=== PATIENT | male | born 1985 ===

== ENCOUNTER 2016-06-25 20:46 | Emergency (ER) | payer MEDICAID ==
[2016-06-25 20:46] VITALS: BMI 22.6
[2016-06-25 21:00] VITALS: BP 106/63; PULSE 84; TEMP 98.4; O2SAT 98
--- NOTE | 2016-06-25 21:19 | C.PDOC ---
History Of Present Illness Patient is a 30 year old male who presents to the ER for a wound dressing change. Patient had knee surgery done on Tuesday the and is scheduled for a follow up next week for staple removal, however, complains of itchiness to the surgical site. Patient states his pain is controlled by the pain medication given to him. Denies active bleeding, fever, pain, or trauma. Time Seen by Provider: 06/25/16 21:03 Chief Complaint (Nursing): Wound Check History Per: Patient History/Exam Limitations: no limitations Onset/Duration Of Symptoms: Hrs, Other (Surgical site) Current Symptoms Are (Timing): Still Present Location Of Injury: Anterior: Knee Quality Of Symptoms: Itching Recent travel outside of the [place]: No Past Medical History Reviewed: Historical Data, Nursing Documentation, Vital Signs Vital Signs: Last Vital Signs Temp 98.4 F 06/25/16 20:55 Pulse 84 06/25/16 20:55 Resp 20 06/25/16 21:32 BP 106/63 06/25/16 20:55 Pulse Ox 98 06/25/16 21:18 - Medical History PMH: Asthma, Depression (seeing counselor in [facility] [place]), Fractures (knee sx 2009 and 2008), Post Traumatic Stress Disorder Other Surgeries: Knee surgery Family History: States: Unknown Family Hx - Social History Hx Tobacco Use: Yes (light smoker) Hx Alcohol Use: No Hx Substance Use: No (denies) - Immunization History Hx Tetanus Toxoid Vaccination: No Hx Influenza Vaccination: No Hx Pneumococcal Vaccination: No Review Of Systems Constitutional: Negative for: Fever, Other (Active bleeding) Musculoskeletal: Positive for: Other (Knee surgical site itchiness) Physical Exam - Physical Exam Appears: Well, Non-toxic Skin: Normal Color, Warm, Dry Head: Atraumatic, Normacephalic Oral Mucosa: Moist Chest: Symmetrical, No Tenderness Cardiovascular: Rhythm Regular, No Murmur Respiratory: Normal Breath Sounds, No Rales, No Rhonchi, No Wheezing Gastrointestinal/Abdominal: Soft, No Tenderness Extremity: Other (Upon removal of BOBO wrap and knee immobilizer, 30 yulissa found dry and intact, no significant swelling, erythema, or discharge.) Neurological/Psych: Oriented x3, Normal Speech, Other (No focal deficits) ED Course And Treatment O2 Sat by Pulse Oximetry: 98 (Room air) Pulse Ox Interpretation: Normal Medical Decision Making Medical Decision Making: New sterile dressing applied by me. Bobo bandage and knee immobilizer re- applied. Patient instructed to follow up with surgeon. Disposition Counseled Patient/Family Regarding: Need For Followup - Disposition Referrals: Non [facility] Provider, [Primary Care Provider] - Disposition: HOME/ ROUTINE Disposition Time: 21:17 Condition: STABLE Additional Instructions: Please follow up with your surgeon as scheduled one week after surgery for staple removal Instructions: Acute Wound Care (ED) - POA Present On Arrival: None - Clinical Impression Clinical Impression: Dressing change or removal, surgical wound - Scribe Statement The provider has reviewed the documentation as recorded by the Scribe Ciaran Green All medical record entries made by the Benjieibzina were at my direction and personally dictated by me. I have reviewed the chart and agree that the record accurately reflects my personal performance of the history, physical exam, medical decision making, and the department course for this patient. I have also personally directed, reviewed, and agree with the discharge instructions and disposition.
[2016-06-25 21:33] VITALS: RESP 20
== END 2016-06-25 21:32 | disposition home or self-care (01) ==
LOC: SUPCPDRO 20:46 → C.ER 20:46
DX: Z48.01 Encounter for change or removal of surgical wound dressing (principal)

== ENCOUNTER 2017-02-27 10:56 | Observation (INO) | payer MEDICAID, OTHER ==
[2017-02-27 10:56] VITALS: BMI 22.6
--- NOTE | 2017-02-27 11:11 | C.PDOC ---
History Of Present Illness 31 y/o undomiciled male with unknown pmh presents with swelling and pain to right elbow with area of erythema and warmth to right forearm. pt sts symptoms x 2 days. pt is poor historian, unclear if there was any trauma or injury, denies any new tattoos. Time Seen by Provider: 02/27/17 11:02 Chief Complaint (Nursing): Upper Extremity Problem/Injury History Per: Patient History/Exam Limitations: other (poor hostoiran) Onset/Duration Of Symptoms: Days (2) Current Symptoms Are (Timing): Worse Quality: Tightness, "Pain" Severity: Moderate Exacerbating Factor(s): Movement Past Medical History Reviewed: Historical Data, Nursing Documentation, Vital Signs Vital Signs: Last Vital Signs Temp 98.3 F 02/27/17 10:59 Pulse 67 02/27/17 10:59 Resp 16 02/27/17 10:59 BP 101/62 02/27/17 10:59 Pulse Ox 96 02/27/17 14:05 - Medical History PMH: Asthma, Depression (seeing counselor in [facility] [place]), Fractures (knee sx 2009 and 2008), Post Traumatic Stress Disorder Denies: Bronchitis, COPD, Emphysema, Pneumonia, Pneumothorax, Pulmonary Embolism, Chronic Kidney Disease, Sleep Apnea Family History: States: Unknown Family Hx - Social History Hx Tobacco Use: Yes (light smoker) Hx Alcohol Use: No Hx Substance Use: No (denies) - Immunization History Hx Tetanus Toxoid Vaccination: No Hx Influenza Vaccination: No Hx Pneumococcal Vaccination: No Review Of Systems Constitutional: Negative for: Fever, Chills Skin: Positive for: Other (erythema to right forearm) Neurological: Negative for: Weakness, Numbness Physical Exam - Physical Exam Appears: No Acute Distress, Unkempt, Other (uncomfortable) Skin: Warm, Dry, Other (area of erythema, warmth and tenderness 16 cm x 6 cm to right lateral forearm) Cardiovascular: Rhythm Regular, No Murmur Respiratory: No Decreased Breath Sounds, No Wheezing Gastrointestinal/Abdominal: Soft, No Tenderness Extremity: Tenderness (right elbow and forearm), Capillary Refill (less than 2 sec), Other (right elbow markedly swollen and tender, able to fully extend and flex at elbow,. no erythema or warmth to elbow, from at right shoulder and wrist. ) Pulses: Left Radial: Normal, Right Radial: Normal Neurological/Psych: Oriented x3, Normal Speech, Normal Cognition ED Course And Treatment - Laboratory Results Result Diagrams: 02/27/17 11:43 02/27/17 11:43 O2 Sat by Pulse Oximetry: 96 Medical Decision Making Medical Decision Makin31 y/o male with swelling and pain to right elbow and area of cellulitis to right forearm x 2 days; plan- labs, bc, xrays elbow and forearm, antibiotics, likely admission. pt able to fully extend right arm, septic arthritis not suspected. 1230 pm pt with elevated wbc and area of cellulits , no fx noted on xrays (by me); will admit to iv antibiotics. discussed with Dr Good, to her service. Disposition Discussed With .: Ame Good Doctor Will See Patient In The: Hospital - Disposition Disposition: HOSPITALIZED Disposition Time: 12:40 Condition: STABLE - Clinical Impression Clinical Impression: Cellulitis of right forearm, Effusion of elbow joint, right
[2017-02-27 11:50] LABS: BASO # 0.1 K/uL (0.0-0.2); BASO % 0.4 % (0.0-2.0); EOS # 0.2 K/uL (0.0-0.7); EOS % 1.4 % (0.0-4.0); HEMOGLOBIN 13.2 g/dL (12.0-18.0); LYMPH # 1.1 K/uL (1.0-4.3); LYMPH % 8.4 % (20.0-40.0); MEAN CORPUSCULAR HEMOGLOBIN 30.4 pg (27.0-31.0); MONO # 0.9 K/uL (0.0-0.8); MONO % 6.7 % (0.0-10.0); NEUT # 11.3 K/uL (1.8-7.0); NEUT % 83.1 % (50.0-75.0); PLATELET COUNT 325 K/uL (130-400); RBC 4.34 Mil/uL (4.40-5.90); WHITE BLOOD COUNT 13.6 K/uL (4.8-10.8)
[2017-02-27 11:58] LABS: URINE BACTERIA RARE (<OCC); URINE BILIRUBIN NEGATIVE (NEGATIVE); URINE BLOOD 1+ (NEGATIVE); URINE CLARITY Clear (Clear); URINE COLOR Yellow (YELLOW); URINE GLUCOSE (UA) NORMAL (Normal); URINE LEUKOCYTE ESTERASE NEG Leu/uL (Negative); URINE NITRATE NEGATIVE (NEGATIVE); URINE PROTEIN 1+ mg/dL (NEGATIVE)
[2017-02-27] MEDS ORDERED: cefTRIAXone IV 1 gm in Dextros 50 ML IVPB STA (12:05)
[2017-02-27] MEDS ORDERED: Vancomycin 1 GM 1 GM/250 ML BAG IVPB STA (12:05)
[2017-02-27 12:06] LABS: ALB/GLOB RATIO 1.4 (1.0-2.1); ALBUMIN 4.4 g/dL (3.5-5.0); ALT/SGPT 32 U/L (21-72); AST/SGOT 50 U/L (17-59); BLOOD UREA NITROGEN 15 mg/dL (9-20); CALCIUM 8.8 mg/dl (8.6-10.4); GFR AFRICAN-AMERICAN > 60; GFR NON-AFRICAN AMERICAN > 60
[2017-02-27] MEDS ORDERED: cefTRIAXone IV 1 gm in Dextros 50 ML IVPB ONE (12:13)
[2017-02-27] MEDS ORDERED: Vancomycin 1 gm/NS 200 ml 1 GM/200 ML BAG IVPB STA (12:17)
[2017-02-27 12:27] LABS: BARBITURATES, UR NEGATIVE (NEGATIVE); BENZODIAZEPINES, UR NEGATIVE (NEGATIVE); OPIATES, UR NEGATIVE (NEGATIVE)
[2017-02-27 12:39] LABS: BANDS 4 % (0-2); MONOCYTE 6 % (0-10); NEUTROPHIL 79 % (50-75); TOTAL CELLS COUNTED 100
[2017-02-27 12:41] LABS: LYMPHOCYTE 9 % (20-40); PLATELET ESTIMATE NORMAL (NORMAL); REACTIVE LYMPHOCYTES 2 % (0-0)
[2017-02-27 13:14] LABS: PHENCYCLIDINE, UR POSITIVE (NEGATIVE)
--- NOTE | 2017-02-27 13:34 | RAD ---
PROCEDURE: Radiographs of the Right Forearm HISTORY: swelling, pain and warmth to forearm COMPARISON: None available. TECHNIQUE: Frontal and lateral views obtained. FINDINGS: BONES: No fracture or destructive lesion. JOINT SPACES: Unremarkable. OTHER FINDINGS: None. IMPRESSION: Unremarkable radiographs of the right forearm.
--- NOTE | 2017-02-27 13:34 | RAD ---
PROCEDURE: Radiographs of the right elbow. HISTORY: swelling and pain to elbow COMPARISON: No prior. FINDINGS: BONES: Normal. No fracture. JOINTS: Normal. No osteoarthritis. SOFT TISSUES: Normal. JOINT EFFUSION: None. OTHER FINDINGS: None. IMPRESSION: Unremarkable radiographs of the right elbow.
[2017-02-27] MEDS ORDERED: Multivitamin (MVI) 10 ML, Thiamine 100 MG, Folic Acid 1 MG in Sodium Chloride 0.9% 1,00... IV ONE (13:35)
--- NOTE | 2017-02-27 13:36 | CP.PCM.HP ---
History of Present Illness - History of Present Illness History of Present Illness: CC: "Right arm pain" HPI: 31 year old male with past medical history of asthma presents to the ED due to right arm pain that started about 2 days ago. 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 At the time he thought it was just bruised. Today the pain became unbearable and he decided to come to the hospital. He states he does not know when the redness began on his arm. He states the pain is an 8/10 constant. He has not tried anything for the pain. He states the pain feels like numbness. He also states the pain is made worse when he moves his arm. He denies fevers, chills, nausea, vomiting, diarrhea or constipation. PMD: None Past Medical History: Asthma (has not used any asthmatic medication in many years), PTSD diagnosed at the age of 9. 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 Smokes about one pack per week for the past 14 years. Present on Admission - Present on Admission Any Indicators Present on Admission: No Review of Systems - Constitutional Constitutional: absent: Chills, Fever - Cardiovascular Cardiovascular: absent: Chest Pain, Dyspnea, Palpitations - Respiratory Respiratory: absent: Dyspnea - Gastrointestinal Gastrointestinal: absent: Constipation, Diarrhea, Nausea, Vomiting - Genitourinary Genitourinary: absent: Dysuria - Musculoskeletal Musculoskeletal: Joint Swelling (Right forearm and right elbow ), Numbness, Tingling - Psychiatric Psychiatric: Anxiety, Depression, Paranoia. absent: Auditory Hallucinations, Hallucinations, Homicidal Ideation, Suicidal Ideation, Visual Hallucinations, Tactile Hallucinations Past Patient History - Infectious Disease Hx of Infectious Diseases: None - Past Social History Smoking Status: Light Smoker < 10 Cigarettes Daily - PULMONARY Hx Asthma: Yes Hx Bronchitis: No Hx Chronic Obstructive Pulmonary Disease (COPD): No Hx Emphysema: No Hx Pneumonia: No Hx Pulmonary Embolism: No Hx Sleep Apnea: No - NEUROLOGICAL Hx Neurological Disorder: No - HEENT Hx HEENT Problems: No - RENAL Hx Chronic Kidney Disease: No - ENDOCRINE/METABOLIC Hx Endocrine Disorders: No - HEMATOLOGICAL/ONCOLOGICAL Hx Blood Disorders: No - INTEGUMENTARY Hx Dermatological Problems: No - MUSCULOSKELETAL/RHEUMATOLOGICAL Hx Fractures: Yes (knee sx 2009 and 2008) - GASTROINTESTINAL Hx Gastrointestinal Disorders: No - GENITOURINARY/GYNECOLOGICAL Hx Genitourinary Disorders: No - PSYCHIATRIC Hx Depression: Yes (seeing counselor in [facility]) Hx Post Traumatic Stress Disorder: Yes Hx Substance Use: No (denies) - SURGICAL HISTORY Hx Surgeries: No Other/Comment: "L knee sx 06/23 to remove screws" - ANESTHESIA Hx Anesthesia: Yes Hx Anesthesia Reactions: No Hx Malignant Hyperthermia: No Meds Allergies/Adverse Reactions: Allergies Allergy/AdvReac Type Severity Reaction Status Date / Time No Known Allergies Allergy Verified 02/27/17 11:00 Physical Exam - Constitutional Appears: In Acute Distress - Head Exam Head Exam: ATRAUMATIC, NORMAL INSPECTION - Eye Exam Eye Exam: Conjunctival injection, EOMI - ENT Exam ENT Exam: Mucous Membranes Moist - Respiratory Exam Respiratory Exam: Clear to Auscultation Bilateral, NORMAL BREATHING PATTERN - Cardiovascular Exam Cardiovascular Exam: REGULAR RHYTHM, +S1, +S2 - GI/Abdominal Exam GI & Abdominal Exam: Normal Bowel Sounds, Soft. absent: Tenderness - Extremities Exam Extremities exam: Positive for: joint swelling (right elbow swelling ), tenderness (right forearm pain ) - Neurological Exam Neurological exam: Alert, Oriented x3 - Expanded Neurological Exam Expanded Sensory exam: Upper Extremity Light Touch: Normal - Psychiatric Exam Psychiatric exam: Normal Affect, Normal Mood - Skin Skin Exam: Dry, Erythema, Intact, Warm Results - Vital Signs Recent Vital Signs: Last Vital Signs Temp 98.3 F 02/27/17 10:59 Pulse 67 02/27/17 10:59 Resp 16 02/27/17 10:59 BP 101/62 02/27/17 10:59 Pulse Ox 96 02/27/17 12:42 - Labs Result Diagrams: 02/27/17 11:43 02/27/17 11:43 Labs: Laboratory Results - last 24 hr 02/27/17 02/27/17 02/27/17 11:43 11:43 11:46 WBC 13.6 H RBC 4.34 L Hgb 13.2 Hct 39.9 MCV 92.0 MCH 30.4 MCHC 33.0 RDW 13.0 Plt Count 325 MPV 8.0 Neut % (Auto) 83.1 H Lymph % (Auto) 8.4 L Alexander % (Auto) 6.7 Eos % (Auto) 1.4 Baso % (Auto) 0.4 Neut # 11.3 H Lymph # 1.1 Alexander # 0.9 H Eos # 0.2 Baso # 0.1 Neutrophils % (Manual) 79 H Band Neutrophils % 4 H Lymphocytes % (Manual) 9 L Reactive Lymphs % 2 H Monocytes % (Manual) 6 Platelet Estimate Normal RBC Morphology Normal Sodium 133 Potassium 3.8 Chloride 99 Carbon Dioxide 26 Anion Gap 12 BUN 15 Creatinine 0.7 L Est GFR ( Amer) > 60 Est GFR (Non-Af Amer) > 60 Random Glucose 83 Calcium 8.8 Total Bilirubin 1.4 H AST 50 ALT 32 Alkaline Phosphatase 53 Total Protein 7.4 Albumin 4.4 Globulin 3.0 Albumin/Globulin Ratio 1.4 Urine Color Yellow Urine Clarity Clear Urine pH 5.0 Ur Specific [place] 1.024 Urine Protein 1+ H Urine Glucose (UA) Normal Urine Ketones 1+ H Urine Blood 1+ H Urine Nitrate Negative Urine Bilirubin Negative Urine Urobilinogen 2.0 Ur Leukocyte Esterase Neg Urine WBC (Auto) 1 Urine RBC (Auto) < 1 Urine Bacteria Rare Urine Opiates Screen Urine Methadone Screen Ur Barbiturates Screen Ur Phencyclidine Scrn Ur Amphetamines Screen U Benzodiazepines Scrn U Oth Cocaine Metabols U Cannabinoids Screen Alcohol, Quantitative < 10 02/27/17 11:46 WBC RBC Hgb Hct MCV MCH MCHC RDW Plt Count MPV Neut % (Auto) Lymph % (Auto) Alexander % (Auto) Eos % (Auto) Baso % (Auto) Neut # Lymph # Alexander # Eos # Baso # Neutrophils % (Manual) Band Neutrophils % Lymphocytes % (Manual) Reactive Lymphs % Monocytes % (Manual) Platelet Estimate RBC Morphology Sodium Potassium Chloride Carbon Dioxide Anion Gap BUN Creatinine Est GFR ( Amer) Est GFR (Non-Af Amer) Random Glucose Calcium Total Bilirubin AST ALT Alkaline Phosphatase Total Protein Albumin Globulin Albumin/Globulin Ratio Urine Color Urine Clarity Urine pH Ur Specific [place] Urine Protein Urine Glucose (UA) Urine Ketones Urine Blood Urine Nitrate Urine Bilirubin Urine Urobilinogen Ur Leukocyte Esterase Urine WBC (Auto) Urine RBC (Auto) Urine Bacteria Urine Opiates Screen Negative Urine Methadone Screen Negative Ur Barbiturates Screen Negative Ur Phencyclidine Scrn Positive H Ur Amphetamines Screen Negative U Benzodiazepines Scrn Negative U Oth Cocaine Metabols Negative U Cannabinoids Screen Negative Alcohol, Quantitative Assessment & Plan - Assessment and Plan (Free Text) Assessment: 1.) Right Forearm Cellulitis - Images: * Right Forearm Xray: Unremarkable radiographs of the right forearm * Right Elbow Xray: Unremarkable radiographs of the right elbow. - Medications * Vancomycin 1gm q24h * Motrin 600mg q6h prn for pain * Tylenol 650mg q6h prn for fever - f/u blood culture 2.) PCP + - Spoke with Dr. Contreras and his recommendations: - Ativan 1mg q4h prn for agitation - Seroquel 50mg Po hs prn for insomnia 3.) Anxiety - Psych Consult: Dr. Contreras --> help appreciated 4.) Depression - Psych Consult: Dr. Contreras --> help appreciated 5.) History of PTSD - Psych Consult: Dr. Contreras --> help appreciated 6.) Prophylaxis - Heparin SC - Pepcid 20mg po daily - SCDs Case discussed with Dr. Ernie Molina PGY-1
[2017-02-27] MEDS ORDERED: Vancomycin 1 gm/NS 200 ml 1 GM/200 ML BAG IVPB SCH ×2 (14:00→22:00)
[2017-02-27 17:06] VITALS: RESP 20
[2017-02-28 06:23] LABS: BASO # 0.1 K/uL (0.0-0.2); BASO % 0.7 % (0.0-2.0); EOS # 0.3 K/uL (0.0-0.7); EOS % 4.3 % (0.0-4.0); HEMOGLOBIN 12.9 g/dL (12.0-18.0); LYMPH # 1.6 K/uL (1.0-4.3); LYMPH % 20.2 % (20.0-40.0); MEAN CELL VOLUME 92.5 fL (80.0-94.0); MEAN CORPUSCULAR HEMOGLOBIN 31.2 pg (27.0-31.0); MEAN CORPUSCULAR HGB CONC 33.7 g/dL (33.0-37.0); MONO # 0.7 K/uL (0.0-0.8); MONO % 8.9 % (0.0-10.0); NEUT # 5.1 K/uL (1.8-7.0); NEUT % 65.9 % (50.0-75.0); RBC 4.13 Mil/uL (4.40-5.90); WHITE BLOOD COUNT 7.8 K/uL (4.8-10.8)
[2017-02-28 06:38] LABS: ALB/GLOB RATIO 1.4 (1.0-2.1); ALBUMIN 3.7 g/dL (3.5-5.0); ALT/SGPT 24 U/L (21-72); AST/SGOT 31 U/L (17-59); BLOOD UREA NITROGEN 16 mg/dL (9-20); GFR AFRICAN-AMERICAN > 60; GFR NON-AFRICAN AMERICAN > 60; MAGNESIUM 1.9 mg/dL (1.6-2.3)
[2017-02-28 08:01] LABS: HEPATITIS B SURFACE AG NEGATIVE (NEGATIVE)
[2017-02-28 08:07] LABS: HEPATITIS A IGM NEGATIVE (NEGATIVE); HEPATITIS B CORE AB Negative (NEGATIVE)
[2017-02-28 08:18] LABS: HEPATITIS C ANTIBODY Negative (NEGATIVE)
--- NOTE | 2017-02-28 08:51 | CP.PCM.PN ---
<JesseParisa SimaMalcolm - Last Filed: 02/28/17 14:03> Subjective - Date & Time of Evaluation Date of Evaluation: 02/28/17 Time of Evaluation: 07:00 - Subjective Subjective: Medicine Progress Note: Patient was seen and examined at bedside in the AM. Per nurse no acute events overnight. Patient states his arm is bag machine tender. He states the numbness in his arm has improved since yesterday. Patient denies fever, nausea, vomiting, dysuria, diarrhea or constipation. Objective - Vital Signs/Intake and Output Vital Signs (last 24 hours): Temp Pulse Resp BP Pulse Ox 98 F 66 20 96/60 L 96 02/28/17 07:32 02/28/17 07:32 02/28/17 07:32 02/28/17 07:32 02/28/17 07:32 Intake and Output: 02/28/17 02/28/17 06:59 18:59 Intake Total 840 Balance 840 - Medications Medications: Current Medications Acetaminophen (Tylenol 325mg Tab) 650 mg PO Q6 PRN PRN Reason: Fever >100.4 F Famotidine (Pepcid) 20 mg PO DAILY [facility] Heparin Sodium (Porcine) (Heparin) 5,000 units SC Q8 [facility] Last Admin: 02/28/17 05:17 Dose: 5,000 units Vancomycin/Sodium Chloride (Vancomycin 1 Gm/Ns 200 Ml) 1 gm in 200 mls @ 166.7 mls/hr IVPB Q24H [facility] Stop: 03/05/17 14:01 Ibuprofen (Motrin Tab) 600 mg PO Q6H PRN PRN Reason: Pain, moderate (4-7) Lorazepam (Ativan) 1 mg IVP Q4H PRN PRN Reason: Agitation Quetiapine Fumarate (Seroquel) 50 mg PO HS PRN PRN Reason: Insomnia Last Admin: 02/27/17 21:26 Dose: 50 mg - Labs Labs: 02/28/17 06:05 02/28/17 06:05 - Constitutional Appears: No Acute Distress - Head Exam Head Exam: ATRAUMATIC, NORMAL INSPECTION - Eye Exam Eye Exam: EOMI, Normal appearance - ENT Exam ENT Exam: Mucous Membranes Moist - Respiratory Exam Respiratory Exam: Clear to Ausculation Bilateral, NORMAL BREATHING PATTERN - Cardiovascular Exam Cardiovascular Exam: REGULAR RHYTHM, +S1, +S2 - GI/Abdominal Exam GI & Abdominal Exam: Soft, Normal Bowel Sounds. absent: Tenderness - Extremities Exam Extremities Exam: Tenderness (right forearm tenderness) - Neurological Exam Neurological Exam: Alert, Awake, Oriented x3 - Psychiatric Exam Psychiatric exam: Normal Affect, Normal Mood - Skin Skin Exam: Erythema (right forearm ), Warm Assessment and Plan - Assessment and Plan (Free Text) Assessment: 1.) Right Forearm Cellulitis - Images: * Right Forearm Xray: Unremarkable radiographs of the right forearm * Right Elbow Xray: Unremarkable radiographs of the right elbow. - Medications * Vancomycin 1gm q24h started 02/27/17 * Motrin 600mg q6h prn for pain * Tylenol 650mg q6h prn for fever - blood culture: negative - preliminary - WBC on admission 13.6 * 02/28/17: WBC 7.8 * Monitor 2.) PCP + - Spoke with Dr. Contreras and his recommendations: - Ativan 1mg q4h prn for agitation - Seroquel 50mg Po hs prn for insomnia 3.) Anxiety - Psych Consult: Dr. Contreras --> help appreciated 4.) Depression - Psych Consult: Dr. Contreras --> help appreciated 5.) History of PTSD - Psych Consult: Dr. Contreras --> help appreciated 6.) Prophylaxis - Heparin SC - Pepcid 20mg po daily - SCDs Case discussed with Dr. Guerline Molina PGY-1 <Atul Cunha - Last Filed: 02/28/17 16:38> Objective - Vital Signs/Intake and Output Vital Signs (last 24 hours): Temp Pulse Resp BP Pulse Ox 98 F 66 20 96/60 L 96 02/28/17 07:32 02/28/17 07:32 02/28/17 07:32 02/28/17 07:32 02/28/17 07:32 Intake and Output: 02/28/17 02/28/17 06:59 18:59 Intake Total 840 500 Balance 840 500 - Medications Medications: Current Medications Acetaminophen (Tylenol 325mg Tab) 650 mg PO Q6 PRN PRN Reason: Fever >100.4 F Famotidine (Pepcid) 20 mg PO DAILY [facility] Last Admin: 02/28/17 10:52 Dose: 20 mg Gabapentin (Neurontin) 300 mg PO BID [facility] Heparin Sodium (Porcine) (Heparin) 5,000 units SC Q8 [facility] Last Admin: 02/28/17 13:24 Dose: 5,000 units Vancomycin/Sodium Chloride (Vancomycin 1 Gm/Ns 200 Ml) 1 gm in 200 mls @ 166.7 mls/hr IVPB Q24H [facility] Stop: 03/05/17 14:01 Last Admin: 02/28/17 13:23 Dose: 166.7 mls/hr Ibuprofen (Motrin Tab) 600 mg PO Q6H PRN PRN Reason: Pain, moderate (4-7) Lorazepam (Ativan) 1 mg IVP Q4H PRN PRN Reason: Agitation Pneumococcal Polyvalent Vaccine (Pneumovax 23 Vaccine) 0.5 ml IM .ONCE ONE Stop: 03/02/17 10:01 Quetiapine Fumarate (Seroquel) 50 mg PO HS PRN PRN Reason: Insomnia Last Admin: 02/27/17 21:26 Dose: 50 mg - Labs Labs: 02/28/17 06:05 02/28/17 06:05 Attending/Attestation - Attestation I have personally seen and examined this patient.: Yes I have fully participated in the care of the patient.: Yes I have reviewed all pertinent clinical information, including history, physical exam and plan: Yes Notes (Text): 02/28/17 16:38 Medical attending: Patient was seen and examined with the medical review specialist. I reviewed the above note and agree with the above. On physical examination he was able to flex and extend his elbow. He had the area of erythema outlined with a marker. He remains on IV antibiotics at this time. He also had x-ray imaging of his forearm as well as elbow and these were stable The white blood cell count did decrease to 7.8, the preliminary blood cultures are negative at this moment I explained to the patient that he might be discharged tomorrow, but will see. Thank you very much, Atul Cunha
--- NOTE | 2017-02-28 11:27 | PCM.PSYCH ---
Initial Psychiatric Evaluation - Initial Psychiatric Evaluation Type of Admission: Voluntary Legal Status: Capacity Chief Complaint (in patient's own words): " I feel depressed" History of Present Illness and Precipitating Events: Psych Consult: Depression, Anxiety, Hx of PTSD The pt is seen, chart reviewed, case discussed with staff. Patient is a 31 year old male with a history of depression, anxiety, and PTSD. He is currently homeless. 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 He states he was diagnosed with depression in 2006 after his mother was murdered. He states he feels worthless and hopeless. He denies any past suicide attempts of S/I at this time. The spells of depression spark his anxiety in which he begins to worry and have racing thoughts. He has never had psychiatric care or medications for these conditions. He was also diagnosed with PTSD, by his PCP, after he say his mother get murdered.He states at night he has dreams of reliving the even occasionally. He has a history of PCP use. He states he is now clean and has not used since 2009. He denies drug and alcohol use at this time. Patient states he smokes 1 pack of cigarettes daily. PMH: Denies Past Psych Hx: Depression anxiety, and PTSD. No prior hospitalizations Family Psych hx: Denies Current Medications: Active Medications Generic Name Dose Route Start Last Admin Trade Name Freq PRN Reason Stop Dose Admin Acetaminophen 650 mg 02/27/17 13:54 Tylenol 325mg Tab PO Q6 PRN Fever >100.4 F Famotidine 20 mg 02/28/17 10:00 02/28/17 10:52 Pepcid PO 20 mg DAILY [facility] Administration Heparin Sodium (Porcine) 5,000 units 02/27/17 22:00 02/28/17 05:17 Heparin SC 5,000 units Q8 [facility] Administration Vancomycin/Sodium Chloride 1 gm in 200 mls @ 166.7 mls/hr 02/28/17 14:00 Vancomycin 1 Gm/Ns 200 Ml IVPB 03/05/17 14:01 Q24H [facility] Ibuprofen 600 mg 02/27/17 13:54 Motrin Tab PO Q6H PRN Pain, moderate (4-7) Lorazepam 1 mg 02/27/17 13:49 Ativan IVP Q4H PRN Agitation Quetiapine Fumarate 50 mg 02/27/17 13:51 02/27/17 21:26 Seroquel PO 50 mg HS PRN Administration Insomnia Past Psychiatric History - Past Psychiatric History Previous Treatment History: None Pertinent Medical Hx (Current Medical&Sleep Prob, Allergies): Allergies Allergy/AdvReac Type Severity Reaction Status Date / Time No Known Allergies Allergy Verified 02/27/17 11:00 No Known Home Med 04/13/16 Review of Systems - Review of Systems All systems: reviewed and no additional remarkable complaints except - Psychiatric Psychiatric: Anxiety, Depression, Irritability. absent: Hallucinations, Homicidal Ideation, Paranoia, Suicidal Ideation Mental Status Examination - Personal Presentation Personal Presentation: Looks stated age - Affect Affect: Constricted - Motor Activity Motor Activity: Calm - Reliability in Providing Information Reliability in Providing Information: Good - Speech Speech: Organized - Mood Mood: Depressed, Anxious - Formal Thought Process Formal Thought Process: No Impairment - Cognitive Functions Orientation: Person, Place, Situation, Time Sensorium: Alert Attention/Concentration: Easily distracted Abstract Thinking: [place] Estimate of Intelligence: Below average - Risk Risk: Diminished functioning DSM 5 DX - DSM 5 DSM 5 Diagnosis: PCP use disorder severe Gen. anxiety disorder Major depressive disorder, recurrent moderate - Recommended/Plan of Treatment Treatment Recommendations and Plan of Treatment: PCP use disorder severe Gen. anxiety disorder Major depressive disorder, recurrent moderate Neurontin 300mg twice a day Individual therapy Psychoeducation and support Encourage compliance with meds and after care Refer to outpatient program Teach healthy lifestyle methods, i.e. diet, exercise, meditation Projected ELOS: 7 days
[2017-02-28] MEDS: Vancomycin 1 gm/NS 200 ml 1 GM/200 ML BAG IVPB SCH (13:23)
[2017-03-01 07:51] VITALS: BP 99/60; PULSE 69; TEMP 98; O2SAT 95
[2017-03-01 08:04] LABS: BASO % 0.8 % (0.0-2.0); EOS # 0.4 K/uL (0.0-0.7); EOS % 6.2 % (0.0-4.0); HEMOGLOBIN 12.8 g/dL (12.0-18.0); LYMPH # 1.5 K/uL (1.0-4.3); MEAN CELL VOLUME 92.9 fL (80.0-94.0); MEAN CORPUSCULAR HEMOGLOBIN 30.8 pg (27.0-31.0); MEAN CORPUSCULAR HGB CONC 33.2 g/dL (33.0-37.0); MEAN PLATELET VOLUME 8.3 fL (7.2-11.7); MONO # 0.5 K/uL (0.0-0.8); MONO % 8.7 % (0.0-10.0); NEUT # 3.4 K/uL (1.8-7.0); NEUT % 58.3 % (50.0-75.0); NRBC % 0.1 % (0.0-2.0); RBC 4.15 Mil/uL (4.40-5.90); RED CELL DISTRIBUTION WIDTH 13.3 % (11.5-14.5); WHITE BLOOD COUNT 5.9 K/uL (4.8-10.8)
[2017-03-01 08:25] LABS: ALB/GLOB RATIO 1.4 (1.0-2.1); ALBUMIN 3.7 g/dL (3.5-5.0); ALT/SGPT 24 U/L (21-72); AST/SGOT 31 U/L (17-59); BLOOD UREA NITROGEN 15 mg/dL (9-20); CALCIUM 8.7 mg/dl (8.6-10.4); GFR AFRICAN-AMERICAN > 60; GFR NON-AFRICAN AMERICAN > 60; MAGNESIUM 1.8 mg/dL (1.6-2.3)
--- NOTE | 2017-03-01 10:53 | CP.PCM.DIS ---
<Sanjay Molinassnathan George - Last Filed: 03/01/17 16:28> Provider - Provider Date of Admission: 02/27/17 12:38 Attending physician: Atul Cunha DO Time Spent in preparation of Discharge (in minutes): 40 Hospital Course - Lab Results Lab Results: Micro Results 02/27/17 11:50 Blood Blood Culture - Preliminary NO GROWTH AFTER 24 HOURS 02/27/17 11:15 Blood Blood Culture - Preliminary NO GROWTH AFTER 24 HOURS Most Recent Lab Values WBC 5.9 K/uL (4.8-10.8) 03/01/17 07:45 RBC 4.15 Mil/uL (4.40-5.90) L 03/01/17 07:45 Hgb 12.8 g/dL (12.0-18.0) 03/01/17 07:45 Hct 38.6 % (35.0-51.0) 03/01/17 07:45 MCV 92.9 fL (80.0-94.0) 03/01/17 07:45 MCH 30.8 pg (27.0-31.0) 03/01/17 07:45 MCHC 33.2 g/dL (33.0-37.0) 03/01/17 07:45 RDW 13.3 % (11.5-14.5) 03/01/17 07:45 Plt Count 311 K/uL (130-400) 03/01/17 07:45 MPV 8.3 fL (7.2-11.7) 03/01/17 07:45 Neut % (Auto) 58.3 % (50.0-75.0) 03/01/17 07:45 Lymph % (Auto) 26.0 % (20.0-40.0) 03/01/17 07:45 [place] % (Auto) 8.7 % (0.0-10.0) 03/01/17 07:45 Eos % (Auto) 6.2 % (0.0-4.0) H 03/01/17 07:45 Baso % (Auto) 0.8 % (0.0-2.0) 03/01/17 07:45 Neut # 3.4 K/uL (1.8-7.0) 03/01/17 07:45 Lymph # 1.5 K/uL (1.0-4.3) 03/01/17 07:45 [place] # 0.5 K/uL (0.0-0.8) 03/01/17 07:45 Eos # 0.4 K/uL (0.0-0.7) 03/01/17 07:45 Baso # 0.0 K/uL (0.0-0.2) 03/01/17 07:45 Neutrophils % (Manual) 79 % (50-75) H 02/27/17 11:43 Band Neutrophils % 4 % (0-2) H 02/27/17 11:43 Lymphocytes % (Manual) 9 % (20-40) L 02/27/17 11:43 Reactive Lymphs % 2 % (0-0) H 02/27/17 11:43 Monocytes % (Manual) 6 % (0-10) 02/27/17 11:43 Platelet Estimate Normal (NORMAL) 02/27/17 11:43 RBC Morphology Normal 02/27/17 11:43 Sodium 136 mmol/L (132-148) 03/01/17 07:45 Potassium 3.9 mmol/L (3.6-5.2) 03/01/17 07:45 Chloride 102 mmol/L (98-107) 03/01/17 07:45 Carbon Dioxide 28 mmol/L (22-30) 03/01/17 07:45 Anion Gap 9 (10-20) L 03/01/17 07:45 BUN 15 mg/dL (9-20) 03/01/17 07:45 Creatinine 0.7 mg/dL (0.8-1.5) L 03/01/17 07:45 Est GFR ( Amer) > 60 03/01/17 07:45 Est GFR (Non-Af Amer) > 60 03/01/17 07:45 Random Glucose 84 mg/dL (75-110) 03/01/17 07:45 Calcium 8.7 mg/dl (8.6-10.4) 03/01/17 07:45 Phosphorus 3.5 mg/dL (2.5-4.5) 03/01/17 07:45 Magnesium 1.8 mg/dL (1.6-2.3) 03/01/17 07:45 Total Bilirubin 0.5 mg/dL (0.2-1.3) 03/01/17 07:45 AST 31 U/L (17-59) 03/01/17 07:45 ALT 24 U/L (21-72) 03/01/17 07:45 Alkaline Phosphatase 47 U/L (38-126) 03/01/17 07:45 Total Protein 6.4 g/dL (6.3-8.3) 03/01/17 07:45 Albumin 3.7 g/dL (3.5-5.0) 03/01/17 07:45 Globulin 2.7 gm/dL (2.2-3.9) 03/01/17 07:45 Albumin/Globulin Ratio 1.4 (1.0-2.1) 03/01/17 07:45 Urine Color Yellow (YELLOW) 02/27/17 11:46 Urine Clarity Clear (Clear) 02/27/17 11:46 Urine pH 5.0 (5.0-8.0) 02/27/17 11:46 Ur Specific [place] 1.024 (1.003-1.030) 02/27/17 11:46 Urine Protein 1+ mg/dL (NEGATIVE) H 02/27/17 11:46 Urine Glucose (UA) Normal mg/dL (Normal) 02/27/17 11:46 Urine Ketones 1+ mg/dL (NEGATIVE) H 02/27/17 11:46 Urine Blood 1+ (NEGATIVE) H 02/27/17 11:46 Urine Nitrate Negative (NEGATIVE) 02/27/17 11:46 Urine Bilirubin Negative (NEGATIVE) 02/27/17 11:46 Urine Urobilinogen 2.0 mg/dL (0.2-1.0) 02/27/17 11:46 Ur Leukocyte Esterase Neg [place]/uL (Negative) 02/27/17 11:46 Urine WBC (Auto) 1 /hpf (0-5) 02/27/17 11:46 Urine RBC (Auto) < 1 /hpf (0-3) 02/27/17 11:46 Urine Bacteria Rare (<OCC) 02/27/17 11:46 Urine Opiates Screen Negative (NEGATIVE) 02/27/17 11:46 Urine Methadone Screen Negative (NEGATIVE) 02/27/17 11:46 Ur Barbiturates Screen Negative (NEGATIVE) 02/27/17 11:46 Ur Phencyclidine Scrn Positive (NEGATIVE) H 02/27/17 11:46 Ur Amphetamines Screen Negative (NEGATIVE) 02/27/17 11:46 U Benzodiazepines Scrn Negative (NEGATIVE) 02/27/17 11:46 U Oth Cocaine Metabols Negative (NEGATIVE) 02/27/17 11:46 U Cannabinoids Screen Negative (NEGATIVE) 02/27/17 11:46 Alcohol, Quantitative < 10 mg/dl (0-10) 02/27/17 11:43 Hepatitis A IgM Ab Negative (NEGATIVE) 02/27/17 14:29 Hep Bs Antigen Negative (NEGATIVE) 02/27/17 14:29 Hep B Core IgM Ab Negative (NEGATIVE) 02/27/17 14:29 Hepatitis C Antibody Negative (NEGATIVE) 02/27/17 14:29 HIV 1&2 Antibody Screen Negative (NEGATIVE) 02/27/17 14:29 - Hospital Course Hospital Course: HPI: 31 year old male with past medical history of asthma presents to the ED due to right arm pain that started about 2 days ago. 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 At the time he thought it was just bruised. Today the pain became unbearable and he decided to come to the hospital. He states he does not know when the redness began on his arm. He states the pain is an 8/10 constant. He has not tried anything for the pain. He states the pain feels like numbness. He also states the pain is made worse when he moves his arm. He denies fevers, chills, nausea, vomiting, diarrhea or constipation. PMD: None Past Medical History: Asthma (has not used any asthmatic medication in many years), PTSD diagnosed at the age of 9. Past Surgical History: Denies Family History: Mom was killed when patient was 9 years old; Father has anxiety Medications: Denies Allergies: NKDA Social: Currently lives in a group home, works in construction; recently incarcerated from September 2016-January 2017; Uncle recently murdered; denies alcohol or illicit drug use. Smokes about one pack per week for the past 14 years. Hospital Course: During patient's hospitalization patient was diagnosed with right forearm cellulitis. Patient was started on vancomycin 1gm daily. Patient was given Motrin 600mg q6h as needed for pain and Tylenol 650mg q6h as needed for fever. Imaging was done Right Forearm Xray: Unremarkable radiographs of the right forearm; Right Elbow Xray: Unremarkable radiographs of the right elbow. Urine drug screen was positive for PCP. Spoke with Dr. Contreras and his recommendations: Ativan 1mg q4h prn for agitation and Seroquel 50mg Po hs prn for insomnia. Psychiatry was consulted Dr. Contreras for Depression, PTSD and anxiety. Patient was recommended Neurontin 300mg twice a day; individual therapy, Psychoeducation and support, Encourage compliance with medications and halthy lifestyle methods, i.e. diet, exercise, meditation. Patient was seen and examined at bedside in the AM. Per nurse no acute events overnight. Patient states his arm has improved since yesterday. Patient denies fever, nausea, vomiting, dysuria, diarrhea or constipation. Patient stable for discharge per Dr. Cunha. Patient to start medications: - Cephalexin 500mg twice per day for 3 days take with food - Gabapentin 300mg twice per day Please call [phone] to schedule an appointment at [facility] in one week. Please return to the emergency room if symptoms return or worsen. This is a summary of patient's hospital course, please see chart for full details. Discharge Exam - Head Exam Head Exam: ATRAUMATIC, NORMAL INSPECTION - Eye Exam Eye Exam: EOMI, Normal appearance - ENT Exam ENT Exam: Mucous Membranes Moist - Respiratory Exam Respiratory Exam: Clear to PA & Lateral, NORMAL BREATHING PATTERN - Cardiovascular Exam Cardiovascular Exam: REGULAR RHYTHM, +S1, +S2 - GI/Abdominal Exam GI & Abdominal Exam: Normal Bowel Sounds, Soft. absent: Tenderness - Extremities Exam Extremities exam: normal inspection - Neurological Exam Neurological exam: Alert, Oriented x3 - Psychiatric Exam Psychiatric exam: Normal Affect, Normal Mood - Skin Skin Exam: Dry, Intact, Normal Color, Warm Discharge Plan - Discharge Medications Prescriptions: Cephalexin [Keflex] 500 mg PO BID #6 capsule Gabapentin [Neurontin] 300 mg PO BID #60 cap - Follow Up Plan Condition: STABLE Disposition: HOME/ ROUTINE Instructions: Cephalexin (By mouth), Gabapentin (By mouth), Cellulitis (DC) <Atul Cunha - Last Filed: 03/01/17 18:50> Provider - Provider Date of Admission: 02/27/17 12:38 Attending physician: Atul Cunha DO Hospital Course - Lab Results Lab Results: Micro Results 02/27/17 11:15 Blood Blood Culture - Preliminary NO GROWTH AFTER 48 HOURS 02/27/17 11:50 Blood Blood Culture - Preliminary NO GROWTH AFTER 24 HOURS Most Recent Lab Values WBC 5.9 K/uL (4.8-10.8) 03/01/17 07:45 RBC 4.15 Mil/uL (4.40-5.90) L 03/01/17 07:45 Hgb 12.8 g/dL (12.0-18.0) 03/01/17 07:45 Hct 38.6 % (35.0-51.0) 03/01/17 07:45 MCV 92.9 fL (80.0-94.0) 03/01/17 07:45 MCH 30.8 pg (27.0-31.0) 03/01/17 07:45 MCHC 33.2 g/dL (33.0-37.0) 03/01/17 07:45 RDW 13.3 % (11.5-14.5) 03/01/17 07:45 Plt Count 311 K/uL (130-400) 03/01/17 07:45 MPV 8.3 fL (7.2-11.7) 03/01/17 07:45 Neut % (Auto) 58.3 % (50.0-75.0) 03/01/17 07:45 Lymph % (Auto) 26.0 % (20.0-40.0) 03/01/17 07:45 [place] % (Auto) 8.7 % (0.0-10.0) 03/01/17 07:45 Eos % (Auto) 6.2 % (0.0-4.0) H 03/01/17 07:45 Baso % (Auto) 0.8 % (0.0-2.0) 03/01/17 07:45 Neut # 3.4 K/uL (1.8-7.0) 03/01/17 07:45 Lymph # 1.5 K/uL (1.0-4.3) 03/01/17 07:45 [place] # 0.5 K/uL (0.0-0.8) 03/01/17 07:45 Eos # 0.4 K/uL (0.0-0.7) 03/01/17 07:45 Baso # 0.0 K/uL (0.0-0.2) 03/01/17 07:45 Neutrophils % (Manual) 79 % (50-75) H 02/27/17 11:43 Band Neutrophils % 4 % (0-2) H 02/27/17 11:43 Lymphocytes % (Manual) 9 % (20-40) L 02/27/17 11:43 Reactive Lymphs % 2 % (0-0) H 02/27/17 11:43 Monocytes % (Manual) 6 % (0-10) 02/27/17 11:43 Platelet Estimate Normal (NORMAL) 02/27/17 11:43 RBC Morphology Normal 02/27/17 11:43 Sodium 136 mmol/L (132-148) 03/01/17 07:45 Potassium 3.9 mmol/L (3.6-5.2) 03/01/17 07:45 Chloride 102 mmol/L (98-107) 03/01/17 07:45 Carbon Dioxide 28 mmol/L (22-30) 03/01/17 07:45 Anion Gap 9 (10-20) L 03/01/17 07:45 BUN 15 mg/dL (9-20) 03/01/17 07:45 Creatinine 0.7 mg/dL (0.8-1.5) L 03/01/17 07:45 Est GFR ( Amer) > 60 03/01/17 07:45 Est GFR (Non-Af Amer) > 60 03/01/17 07:45 Random Glucose 84 mg/dL (75-110) 03/01/17 07:45 Calcium 8.7 mg/dl (8.6-10.4) 03/01/17 07:45 Phosphorus 3.5 mg/dL (2.5-4.5) 03/01/17 07:45 Magnesium 1.8 mg/dL (1.6-2.3) 03/01/17 07:45 Total Bilirubin 0.5 mg/dL (0.2-1.3) 03/01/17 07:45 AST 31 U/L (17-59) 03/01/17 07:45 ALT 24 U/L (21-72) 03/01/17 07:45 Alkaline Phosphatase 47 U/L (38-126) 03/01/17 07:45 Total Protein 6.4 g/dL (6.3-8.3) 03/01/17 07:45 Albumin 3.7 g/dL (3.5-5.0) 03/01/17 07:45 Globulin 2.7 gm/dL (2.2-3.9) 03/01/17 07:45 Albumin/Globulin Ratio 1.4 (1.0-2.1) 03/01/17 07:45 Urine Color Yellow (YELLOW) 02/27/17 11:46 Urine Clarity Clear (Clear) 02/27/17 11:46 Urine pH 5.0 (5.0-8.0) 02/27/17 11:46 Ur Specific [place] 1.024 (1.003-1.030) 02/27/17 11:46 Urine Protein 1+ mg/dL (NEGATIVE) H 02/27/17 11:46 Urine Glucose (UA) Normal mg/dL (Normal) 02/27/17 11:46 Urine Ketones 1+ mg/dL (NEGATIVE) H 02/27/17 11:46 Urine Blood 1+ (NEGATIVE) H 02/27/17 11:46 Urine Nitrate Negative (NEGATIVE) 02/27/17 11:46 Urine Bilirubin Negative (NEGATIVE) 02/27/17 11:46 Urine Urobilinogen 2.0 mg/dL (0.2-1.0) 02/27/17 11:46 Ur Leukocyte Esterase Neg [place]/uL (Negative) 02/27/17 11:46 Urine WBC (Auto) 1 /hpf (0-5) 02/27/17 11:46 Urine RBC (Auto) < 1 /hpf (0-3) 02/27/17 11:46 Urine Bacteria Rare (<OCC) 02/27/17 11:46 Urine Opiates Screen Negative (NEGATIVE) 02/27/17 11:46 Urine Methadone Screen Negative (NEGATIVE) 02/27/17 11:46 Ur Barbiturates Screen Negative (NEGATIVE) 02/27/17 11:46 Ur Phencyclidine Scrn Positive (NEGATIVE) H 02/27/17 11:46 Ur Amphetamines Screen Negative (NEGATIVE) 02/27/17 11:46 U Benzodiazepines Scrn Negative (NEGATIVE) 02/27/17 11:46 U Oth Cocaine Metabols Negative (NEGATIVE) 02/27/17 11:46 U Cannabinoids Screen Negative (NEGATIVE) 02/27/17 11:46 Alcohol, Quantitative < 10 mg/dl (0-10) 02/27/17 11:43 Hepatitis A IgM Ab Negative (NEGATIVE) 02/27/17 14:29 Hep Bs Antigen Negative (NEGATIVE) 02/27/17 14:29 Hep B Core IgM Ab Negative (NEGATIVE) 02/27/17 14:29 Hepatitis C Antibody Negative (NEGATIVE) 02/27/17 14:29 HIV 1&2 Antibody Screen Negative (NEGATIVE) 02/27/17 14:29 Attending/Attestation - Attestation I have personally seen and examined this patient.: Yes I have fully participated in the care of the patient.: Yes I have reviewed all pertinent clinical information, including history, physical exam and plan: Yes Notes (Text): 03/01/17 18:50 Medical attending: Patient was seen and examined by me, reviewed the above note by certified medical biller and agree We reviewed the patient's blood work today his white blood cell count is stable less it was yesterday. His blood cultures have returned they are negative. Also the will be continued with a low dose of oral antibiotics to go with. He also asked us to provide him a prescription saying that he was in hospital. He states that he has a court date today he doesn't know if he can make it or not. We explained to him that we would give him an RX saying that he was here in the hospital that he is now medically stable. Thank you very much, Atul Cunha
[2017-03-01] MEDS ORDERED: Pneumococcal 23-Valent Vaccine IM ONE (12:00)
[2017-03-01] MEDS ORDERED: Influenza Vaccine 60 mcg/0.5 mL SYR (4YR UP) IM ONE (12:00)
[2017-03-01] MEDS: Vancomycin 1 gm/NS 200 ml 1 GM/200 ML BAG IVPB SCH (14:00)
[2017-03-02] MEDS ORDERED: Pneumococcal 23-Valent Vaccine IM ONE (10:00)
[2017-03-02] MEDS ORDERED: Influenza Vaccine 60 mcg/0.5 mL SYR (4YR UP) IM ONE (10:00)
== END 2017-03-01 17:29 | disposition home or self-care (01) ==
LOC: C.ER 10:56 → C.9E 12:38 → C.3T 14:52
PROVIDERS: ADMIT Hospitalist; ATTEND Hospitalist
DX: L03.113 Cellulitis of right upper limb (principal); F33.1 Major depressive disorder, recurrent, moderate; F43.10 Post-traumatic stress disorder, unspecified; F17.210 Nicotine dependence, cigarettes, uncomplicated; F16.10 Hallucinogen abuse, uncomplicated; G47.00 Insomnia, unspecified; J45.909 Unspecified asthma, uncomplicated; W19.XXXA Unspecified fall, initial encounter; Z59.0 Homelessness
CPT/HCPCS: 36415; 73080; 73090; 80053; 80074; 80320; 80324; 80345; 80346; 80349; 80353; 80358; 80361; 81001; 83735; 83992; 84100; 85025; 86703; 87040; 96365; 96366; 96367; 96372; 96375; 99285; G0378; J0696; J1644; J3370; J3411; J7040

== ENCOUNTER 2017-04-30 15:33 | Emergency (ER) | payer MEDICAID ==
[2017-04-30 15:33] VITALS: BMI 22.6
[2017-04-30 15:41] VITALS: RESP 18; TEMP 97.9
--- NOTE | 2017-04-30 16:23 | C.PDOC ---
History Of Present Illness 31 year old male presents to the ED requesting PCP and alcohol detox. Patient states his last PCP use was 2-3 weeks ago and his last drink was yesterday. Patient denies suicidal/homicidal ideations and has no physical complaints at this time. Time Seen by Provider: 04/30/17 15:56 Chief Complaint (Nursing): Substance Abuse History Per: Patient History/Exam Limitations: no limitations Onset/Duration Of Symptoms: Hrs Current Symptoms Are (Timing): Still Present Suicide/Self Injury Attempted (Context): None Modifying Factor(s): Alcohol, Other (PCP) Associated Symptoms: denies: Suicidal Thoughts, Suicidal Plan Involuntary Hold By: None Additional History Per: Patient Past Medical History Reviewed: Historical Data, Nursing Documentation, Vital Signs Vital Signs: Last Vital Signs Temp 97.9 F 04/30/17 15:38 Pulse 104 H 04/30/17 16:50 Resp 18 04/30/17 16:50 BP 100/59 L 04/30/17 16:50 Pulse Ox 96 04/30/17 17:25 - Medical History PMH: Asthma, Depression (seeing counselor in [facility]), Fractures (knee sx 2009 and 2008), Post Traumatic Stress Disorder Surgical History: No Surg Hx Family History: States: No Known Family Hx - Social History Hx Tobacco Use: Yes (light smoker) Hx Alcohol Use: Yes Hx Substance Use: Yes - Immunization History Hx Tetanus Toxoid Vaccination: No Hx Influenza Vaccination: No Hx Pneumococcal Vaccination: No Review Of Systems Except As Marked, All Systems Reviewed And Found Negative. Constitutional: Positive for: Chills. Negative for: Fever Cardiovascular: Negative for: Chest Pain Respiratory: Negative for: Shortness of Breath Gastrointestinal: Negative for: Nausea, Vomiting, Abdominal Pain, Diarrhea Psych: Positive for: Other (alcohol and PCP detox ). Negative for: Suicidal ideation Physical Exam - Physical Exam Appears: Well, Non-toxic, No Acute Distress Skin: Normal Color, Warm, Dry Head: Normacephalic Eye(s): bilateral: Normal Inspection Oral Mucosa: Moist Neck: Supple Cardiovascular: Rhythm Regular Respiratory: Normal Breath Sounds, No Rales, No Rhonchi, No Wheezing Extremity: Normal ROM Neurological/Psych: Oriented x3, Other (mild tremors of upper extremities) Gait: Steady ED Course And Treatment O2 Sat by Pulse Oximetry: 96 (on RA ) Pulse Ox Interpretation: Normal Progress Note: Patient given Librium PO in ED. On reassessment, patient has no tremors, states he feels better, and vitals have improved. Spoke with crisis, there are no detox beds currently available. Patient discharged home, instructed to return to ER at later date to try again. He understands he should return to ED if he has any concerning symptoms. Reevaluation Time: 17:30 Reassessment Condition: Improved Disposition Counseled Patient/Family Regarding: Diagnosis, Need For Followup - Disposition Referrals: Raffi Manning MD [Non-Staff] - Disposition: HOME/ ROUTINE Disposition Time: 17:30 Condition: STABLE Additional Instructions: RETURN TO ER AT LATER DATE FOR DETOX BED RETURN TO ER IF YOU HAVE WORSENING/CONCERNING SYMPTOMS Instructions: Alcohol Abuse and Alcoholism (DC) Forms: [email or web address] (Tristanian) Print Language: YAKUT - POA Present On Arrival: None - Clinical Impression Clinical Impression: Alcohol abuse - Scribe Statement The provider has reviewed the documentation as recorded by the Scribe (Shilpi Aleman) Provider Attestation: All medical record entries made by the Scribe were at my direction and personally dictated by me. I have reviewed the chart and agree that the record accurately reflects my personal performance of the history, physical exam, medical decision making, and the department course for this patient. I have also personally directed, reviewed, and agree with the discharge instructions and disposition.
[2017-04-30 16:50] VITALS: BP 100/59; PULSE 104
[2017-04-30 17:25] VITALS: O2SAT 96
== END 2017-04-30 17:34 | disposition home or self-care (01) ==
LOC: C.ER 15:33
DX: F10.10 Alcohol abuse, uncomplicated (principal); Y90.9 Presence of alcohol in blood, level not specified

== ENCOUNTER 2017-06-14 19:02 | Emergency (ER) | payer MEDICAID ==
[2017-06-14 19:02] VITALS: BMI 22.6
[2017-06-14 19:17] VITALS: BP 120/78; PULSE 108; RESP 18; TEMP 99.6; O2SAT 98
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
== END 2017-06-14 19:28 | disposition left against medical advice (07) ==
LOC: SUPCPDRO 19:02 → C.ER 19:02
DX: S00.83XA Contusion of other part of head, initial encounter (principal); Y04.0XXA Assault by unarmed brawl or fight, initial encounter

== ENCOUNTER 2017-06-15 00:47 | Emergency (ER) | payer MEDICAID ==
[2017-06-15 00:47] VITALS: BMI 22.6
[2017-06-15 00:54] VITALS: RESP 18
--- NOTE | 2017-06-15 04:03 | CT ---
EXAM: CT Maxillofacial Without Intravenous Contrast CLINICAL HISTORY: 31 years old, male; Pain; Face pain and jaw pain; Additional info: Pain , swelling TECHNIQUE: Axial computed tomography images of the face without intravenous contrast. All CT scans at this facility use one or more dose reduction techniques, viz.: automated exposure control; ma/kV adjustment per patient size (including targeted exams where dose is matched to indication; i.e. head); or iterative reconstruction technique. Coronal and sagittal reformatted images were created and reviewed. COMPARISON: No relevant prior studies available. FINDINGS: Limitations: Lack of intravenous contrast. Bones/joints: No acute fracture. No dislocation. Soft tissues: Moderate to extensive soft tissue swelling/stranding about right mandible. Mild enlargement of right masseter muscle. No discrete fluid collection within limits of examination. Orbits: Unremarkable. Sinuses: Scattered minimal mucosal thickening. Few small maxillary retention cysts. No air-fluid levels. Mastoid air cells: No mastoid effusion. Dental: Periapical lucencies with cortical disruption about upper central incisors, left greater than right. Periapical lucency about right upper lateral incisor. IMPRESSION: 1. Soft tissue edema about right mandible, nonspecific. Clinical correlation is needed. 2. Dental disease. 3. Incidental/non-acute findings are described above.
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
[2017-06-15 05:14] VITALS: BP 103/69; PULSE 70; TEMP 98.6
[2017-06-15 06:17] VITALS: O2SAT 98
== END 2017-06-15 05:27 | disposition home or self-care (01) ==
LOC: SUPCPDRO 00:47 → C.ER 00:47
DX: S00.83XD Contusion of other part of head, subsequent encounter (principal); Y09 Assault by unspecified means; K02.9 Dental caries, unspecified

== ENCOUNTER 2017-08-16 10:17 | Emergency (ER) | payer MEDICAID ==
[2017-08-16 10:17] VITALS: BMI 22.6
[2017-08-16 10:39] VITALS: BP 103/63; PULSE 80; RESP 18; TEMP 98.6; O2SAT 97
--- NOTE | 2017-08-16 14:22 | C.PDOC ---
History Of Present Illness 31yo male, comes to ER requesting detox from PCP. Patient states he feels scared and is "looking for help" and is complaining of pain all over his body. He denies any suicidal or homicidal ideation at this time. He has no other medical complaints. Time Seen by Provider: 08/16/17 11:09 Chief Complaint (Nursing): Substance Abuse History Per: Patient History/Exam Limitations: no limitations Associated Symptoms: denies: Suicidal Thoughts, Suicidal Plan Past Medical History Reviewed: Historical Data, Nursing Documentation, Vital Signs Vital Signs: Last Vital Signs Temp 98.6 F 08/16/17 10:33 Pulse 80 08/16/17 10:33 Resp 18 08/16/17 10:33 BP 103/63 08/16/17 10:33 Pulse Ox 97 08/16/17 14:25 - Medical History PMH: Asthma, Depression, Fractures (left knee), Post Traumatic Stress Disorder Denies: Bronchitis, COPD, Emphysema, Pneumonia, Pneumothorax, Pulmonary Embolism, Chronic Kidney Disease, Sleep Apnea Surgical History: No Surg Hx Family History: States: Unknown Family Hx - Social History Hx Tobacco Use: Yes (light smoker) Hx Alcohol Use: Yes Hx Substance Use: Yes - Immunization History Hx Tetanus Toxoid Vaccination: No Hx Influenza Vaccination: No Hx Pneumococcal Vaccination: No Review Of Systems Constitutional: Positive for: Other (generalized body pains). Negative for: Fever, Chills Cardiovascular: Negative for: Chest Pain Respiratory: Negative for: Shortness of Breath Psych: Positive for: Other ("feels scared"). Negative for: Suicidal ideation Physical Exam - Physical Exam Appears: Non-toxic Skin: Warm, Dry Head: Normacephalic Eye(s): bilateral: Normal Inspection Neck: Normal ROM, Supple Chest: Symmetrical Cardiovascular: Rhythm Regular Respiratory: Normal Breath Sounds Gastrointestinal/Abdominal: Normal Exam, Soft, No Tenderness Back: Normal Inspection Extremity: Normal ROM, No Pedal Edema, No Deformity Neurological/Psych: Oriented x3, Normal Speech, Normal Cognition, Normal Motor, Normal Sensation ED Course And Treatment O2 Sat by Pulse Oximetry: 97 (RA) Pulse Ox Interpretation: Normal Medical Decision Making Medical Decision Making: Impression: Detox from PCP Plan: -- Case referred to community mental health social worker Progress: Discussed with crisis team and at present, there are no detox beds present. Patient given outpatient resources by crisis team. Stable upon discharge home. Disposition - Disposition Disposition: HOME/ ROUTINE Disposition Time: 11:30 Condition: GOOD Additional Instructions: PLease follow up with resources given to you by Chelsea from Crisis team. Stop using PCP. Forms: [facility] (Estonian), General Discharge Instructions - Clinical Impression Clinical Impression: PCP (phencyclidine) abuse - PA / GARDENER FLORIST / Resident Statement MD/DO has reviewed & agrees with the documentation as recorded. - Scribe Statement The provider has reviewed the documentation as recorded by the Scribe (Kailey Vera) Provider Attestation: All medical record entries made by the Scribe were at my direction and personally dictated by me. I have reviewed the chart and agree that the record accurately reflects my personal performance of the history, physical exam, medical decision making, and the department course for this patient. I have also personally directed, reviewed, and agree with the discharge instructions and disposition.
== END 2017-08-16 11:31 | disposition home or self-care (01) ==
LOC: C.ER 10:17
DX: F16.10 Hallucinogen abuse, uncomplicated (principal)

== ENCOUNTER 2017-08-21 19:51 | Emergency (ER) | payer MEDICAID ==
[2017-08-21 19:52] VITALS: BMI 22.6
[2017-08-21] MEDS ORDERED: Sodium Chloride 0.9% 1,000 ML IV ONE (20:16)
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
[2017-08-21 21:23] LABS: URINE BILIRUBIN 1+ (NEGATIVE); URINE BLOOD NEGATIVE (NEGATIVE); URINE CLARITY Hazy (Clear); URINE COLOR Amber (YELLOW); URINE GLUCOSE (UA) NORMAL (Normal); URINE LEUKOCYTE ESTERASE TRACE Leu/uL (Negative); URINE PROTEIN 1+ mg/dL (NEGATIVE)
[2017-08-21 21:31] LABS: BARBITURATES, UR NEGATIVE (NEGATIVE); BENZODIAZEPINES, UR NEGATIVE (NEGATIVE); OPIATES, UR NEGATIVE (NEGATIVE)
[2017-08-21 21:33] LABS: PHENCYCLIDINE, UR POSITIVE (NEGATIVE)
[2017-08-21 21:40] LABS: BASO # 0.1 K/uL (0.0-0.2); BASO % 0.8 % (0.0-2.0); EOS # 0.2 K/uL (0.0-0.7); HEMOGLOBIN 13.1 g/dL (12.0-18.0); LYMPH # 1.7 K/uL (1.0-4.3); LYMPH % 18.1 % (20.0-40.0); MEAN CELL VOLUME 92.3 fL (80.0-94.0); MEAN CORPUSCULAR HEMOGLOBIN 31.2 pg (27.0-31.0); MEAN CORPUSCULAR HGB CONC 33.8 g/dL (33.0-37.0); MEAN PLATELET VOLUME 7.5 fL (7.2-11.7); MONO # 0.7 K/uL (0.0-0.8); MONO % 7.2 % (0.0-10.0); NEUT # 6.7 K/uL (1.8-7.0); NEUT % 71.9 % (50.0-75.0); RBC 4.2 Mil/uL (4.40-5.90); RED CELL DISTRIBUTION WIDTH 13.1 % (11.5-14.5); WHITE BLOOD COUNT 9.3 K/uL (4.8-10.8)
[2017-08-21 22:05] LABS: ACETAMINOPHEN < 10.0 ug/mL (10.0-30.0); ALB/GLOB RATIO 1.9 (1.0-2.1); ALBUMIN 5.1 g/dL (3.5-5.0); ALT/SGPT 30 U/L (21-72); AST/SGOT 28 U/L (17-59); BLOOD UREA NITROGEN 19 mg/dL (9-20); CALCIUM 9.1 mg/dl (8.6-10.4); GFR AFRICAN-AMERICAN > 60; GFR NON-AFRICAN AMERICAN > 60; SALICYLATE < 1.0 mg/dL 1
[2017-08-21 23:40] VITALS: RESP 20; TEMP 98.2
[2017-08-22 01:54] VITALS: BP 123/62; PULSE 85
[2017-08-22 03:57] VITALS: O2SAT 95
--- NOTE | 2017-08-22 12:37 | RAD ---
Date of service: 08/21/2017 HISTORY: Detox/Psy COMPARISON: Chest radiograph dated 03/14/2014 TECHNIQUE: Chest PA and lateral FINDINGS: LUNGS: No active pulmonary disease. PLEURA: No significant pleural effusion identified. No pneumothorax apparent. CARDIOVASCULAR: Normal. OSSEOUS STRUCTURES: No significant abnormalities. VISUALIZED UPPER ABDOMEN: Normal. OTHER FINDINGS: Nonspecific density in the subcarinal region on the AP view, unable to localize on the lateral view. IMPRESSION: Nonspecific density in the subcarinal region on the AP view, unable to localize on the lateral view. No focal consolidation or pleural effusion. ER notification submitted electronically.
== END 2017-08-22 02:03 | disposition home or self-care (01) ==
LOC: C.ER 19:51
DX: F16.10 Hallucinogen abuse, uncomplicated (principal); F17.200 Nicotine dependence, unspecified, uncomplicated
CPT/HCPCS: 71046; 80053; 80320; 80324; 80329; 80345; 80346; 80349; 80353; 80358; 80361; 81001; 82550; 83992; 85025; 93005; 96360; 99284; J7030

== ENCOUNTER 2017-10-07 17:06 | Emergency (ER) | payer MEDICAID, OTHER ==
[2017-10-07 17:07] VITALS: BMI 22.6
[2017-10-07 17:18] VITALS: BP 109/68; PULSE 81; RESP 20; TEMP 98.4; O2SAT 97
[2017-10-07] MEDS ORDERED: Tetanus/Diphtheria Toxoids 0.5 ml Syringe IM ONE ×2 (17:30→18:11)
[2017-10-07] MEDS ORDERED: Lidocaine 1% Inj (20ml) INFIL STA (17:31)
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
[2017-10-07] MEDS ORDERED: Lidocaine Hydrochloride 5 ML INJ ONE (18:10)
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
== END 2017-10-07 18:46 | disposition home or self-care (01) ==
LOC: C.ER 17:06
DX: S01.511A Laceration without foreign body of lip, initial encounter (principal); S01.01XA Laceration without foreign body of scalp, initial encounter; S00.432A Contusion of left ear, initial encounter; S20.212A Contusion of left front wall of thorax, initial encounter; Y04.0XXA Assault by unarmed brawl or fight, initial encounter

== ENCOUNTER 2017-10-08 02:49 | Emergency (ER) | payer MEDICAID ==
[2017-10-08 02:50] VITALS: BMI 22.6
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
[2017-10-08] MEDS ORDERED: Amoxicillin-Clav 875-125 mg Tab PO STA (03:49)
[2017-10-08] MEDS ORDERED: Bacitracin 500 Units/gm Oint Foilpak UD TOP STA (03:49)
[2017-10-08] MEDS ORDERED: Rabies Immune Globulin 150 INTLU/ML VIAL IM ONE (04:02)
[2017-10-08] MEDS ORDERED: Bacitracin 500 Units/gm Oint Foilpak UD ONE (04:31)
[2017-10-08] MEDS ORDERED: Amoxicillin-Clav 875-125 mg Tab PO ONE (04:32)
[2017-10-08 06:03] VITALS: BP 101/64; PULSE 63; RESP 18; TEMP 98.1
[2017-10-08 06:15] VITALS: O2SAT 98
== END 2017-10-08 06:03 | disposition home or self-care (01) ==
LOC: C.ER 02:49
DX: S51.852A Open bite of left forearm, initial encounter (principal); S51.851A Open bite of right forearm, initial encounter; W54.0XXA Bitten by dog, initial encounter; Z23 Encounter for immunization

== ENCOUNTER 2018-04-10 19:29 | Emergency (ER) | payer SELFPAY ==
[2018-04-10 19:29] VITALS: BMI 22.6
[2018-04-10 19:38] VITALS: RESP 16
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
[2018-04-10 22:05] VITALS: BP 125/65; PULSE 88; TEMP 99.1; O2SAT 99
== END 2018-04-10 22:04 | disposition home or self-care (01) ==
LOC: C.ER 19:29
DX: F19.10 Other psychoactive substance abuse, uncomplicated (principal)